=== PATIENT | male | born 1990 | race Caucasian/White ===

== ENCOUNTER 2017-03-25 18:30 | Emergency (ER) | payer OTHER ==
[2017-03-25 18:42] VITALS: BP 141/93
--- NOTE | 2017-03-25 19:16 | ER Document Report ---
ED Skin Rash/Insect Bite/Abscs - General Chief Complaint: Hand Pain Stated Complaint: THUMB SWELLING Time Seen by Provider: 03/25/17 18:57 Notes: The patient 26-year-old male, right-handed, works with computers all day, presents with 2 days of left thumb swelling and pain with a small amount of discharge. He denies any injury, numbness or tingling. TRAVEL OUTSIDE OF THE [place] IN LAST 30 DAYS: No - Related Data Allergies/Adverse Reactions: No Known Allergies Allergy (Verified 03/25/17 19:04) Past Medical History - General Information source: Patient - Social History Smoking Status: Never Smoker Frequency of alcohol use: None Drug Abuse: None Family History: Reviewed & Not Pertinent Patient has suicidal ideation: No Patient has homicidal ideation: No Renal/ Medical History: Denies: Hx Peritoneal Dialysis Surgical Hx: Negative Review of Systems - Review of Systems Notes: REVIEW OF SYSTEMS: CONSTITUTIONAL: -fevers, -chills EENT: -eye pain, -difficulty swallowing, -nasal congestion CARDIOVASCULAR:-chest pain, -syncope. RESPIRATORY: -cough, -SOB GASTROINTESTINAL: -abdominal pain, - nausea, -vomiting, -diarrhea GENITOURINARY: -dysuria, -hematuria MUSCULOSKELETAL: -back pain, -neck pain SKIN: +abscess of left thumb HEMATOLOGIC: -easy bruising or bleeding. LYMPHATIC: -swollen, enlarged glands. NEUROLOGICAL: -altered mental status or loss of consciousness, -headache, - neurologic symptoms PSYCHIATRIC: -anxiety, -depression. ALL OTHER SYSTEMS REVIEWED AND NEGATIVE. Physical Exam - Vital signs Vitals: Temp Pulse Resp BP Pulse Ox 97.8 F 74 16 141/93 H 97 03/25/17 18:38 03/25/17 18:38 03/25/17 18:38 03/25/17 18:38 03/25/17 18:38 - Notes Notes: PHYSICAL EXAMINATION: GENERAL: Well-appearing, well-nourished and in no acute distress. HEAD: Atraumatic, normocephalic. EYES: Pupils equal round and reactive to light, extraocular movements intact, sclera anicteric, conjunctiva are normal. ENT: nares patent, oropharynx clear without exudates. Moist mucous membranes. NECK: Normal range of motion, supple without lymphadenopathy LUNGS: Breath sounds clear to auscultation bilaterally and equal. No wheezes rales or rhonchi. HEART: Regular rate and rhythm without murmurs ABDOMEN: Soft, nontender, normoactive bowel sounds. No guarding, no rebound. No masses appreciated. EXTREMITIES: Abscess on left thumb. All tendons intact. No Kanavel's signs. NEUROLOGICAL: Cranial nerves grossly intact. Normal speech, normal gait. Normal sensory and motor exams. PSYCH: Normal mood, normal affect. SKIN: Left thumb 2 cm abscess with fluctuance Course - Re-evaluation Re-evalutation: Patient with left thumb abscess that was drained with purulent discharge. No evidence of flexor tenosynovitis. Patient instructed to continue warm baths begin Keflex. He will follow-up with a hand surgeon if there is worsening swelling. - Vital Signs Vital signs: Temp Pulse Resp BP Pulse Ox 97.8 F 74 18 141/93 H 97 03/25/17 18:38 03/25/17 18:38 03/25/17 18:57 03/25/17 18:38 03/25/17 18:38 Procedures - Incision and Drainage Left Thumb Time completed: 19:22 Type: Simple Blade size: 11 I&D procedure: Sterile dressing applied Incision Method: Incision made by scalpel Amount/type of drainage: 5 mL purulent drainage Discharge - Discharge Clinical Impression: Abscess of thumb, left Condition: Good Disposition: HOME, SELF-CARE Additional Instructions: ABSCESS: You have an abscess (boil). This a pus-forming infection, usually due to staph. Some boils may be left to drain on their own, but most require lancing. From the time the tender lump first appears, it may be three or four days before the abscess is ready to maru. Local heat and rest help at this stage of treatment. An antibiotic may prevent spread of the infection. Once the abscess is opened, packing may be placed into it. This is done so pus is not sealed inside by premature closure of the cavity. The packing will be removed at your follow-up visit or you may be advised to remove it yourself at home. Sometimes this packing must be replaced a few times during healing. The wound will heal with surprisingly little scar. Depending on the size and location of an abscess, healing can take one to four weeks. You may shower and wash the area around the incision site two or three times a day. Antibiotics may be prescribed, but are usually not necessary after an abscess has been drained. If you develop fever, chills, worsening pain, or increasing swelling in the area, call the doctor or return immediately. POST INCISION AND DRAINAGE: You have had an incision made to allow drainage of an abscess. The incision must remain open so that pus and debris can drain from the wound. If the abscess cavity is large, packing is placed. This keeps the tissues from collapsing and trapping pus inside, while the body shrinks the cavity. The packing may need to be replaced every day or two. The physician will instruct you on the packing. Keep a bulky dressing over the area. Replace it if it becomes saturated with blood or pus. Do not disturb the packing (if present). You may shower and cleanse the area with gentle soap and warm water two or three times a day. Local warmth may be soothing, and may promote faster healing. Return if you develop high fever or chills, or if you note spreading redness, increasing swelling, or increasing tenderness. CEPHALEXIN: The antibiotic you've been prescribed is a member of the cephalosporin class. This type of antibiotic covers a wide variety of infections, including those of the skin, lungs, and urinary tract. It's useful for staph infections. This antibiotic is slightly similar to the penicillin family. In rare cases , a person who is allergic to penicillin will also be allergic to this medication. If you have had a severe allergic reaction to penicillin, and have not taken this antibiotic since that time, notify your doctor. Antibiotics which cover many germs ("broad spectrum" antibiotics) are more likely to cause diarrhea or "yeast" infections. Women prone to vaginal yeast problems may suffer an attack after taking this antibiotic. In infants, oral thrush (white spots "stuck" on the cheek) or yeast diaper rash may result. See your doctor if these problems occur. Call at once if you develop itching, hives , shortness of breath, or lightheadedness. FOLLOW-UP CARE: Most simple abscesses will not require a follow up visit. If you had packing placed in the abscess, remove it as instructed by the physician. If you have been referred to a physician for follow-up care, call the physicians office for an appointment as you were instructed or within the next two days. If you experience worsening or a significant change in your symptoms, return to the Emergency Department at any time for re-evaluation. Prescriptions: Cephalexin Monohydrate [Keflex 500 mg Capsule] 500 mg PO TID #20 capsule Referrals: ARISTIDES PÉREZ DO [ACTIVE STAFF] - Follow up as needed
== END 2017-03-25 19:20 | disposition home or self-care (01) ==
LOC: ER 18:30
DX: L02.512 Cutaneous abscess of left hand (principal); M79.642 Pain in left hand
CPT/HCPCS: 99283

== ENCOUNTER 2017-04-05 18:48 | Emergency (ER) | payer OTHER ==
[2017-04-05] MEDS ORDERED: CEFTRIAXONE INJ 1000 MG VIAL IM ONE (19:54)
[2017-04-05] MEDS ORDERED: LIDOCAINE 1% INJ-PF (10 MG/ML) 30 ML SDV INJ ONE (19:54)
[2017-04-05] MEDS ORDERED: CLINDAMYCIN HCL 150 MG CAPSULE PO ONE (19:55)
--- NOTE | 2017-04-05 20:01 | ER Document Report ---
HPI - HPI Pain Level: 5 Notes: Patient is a 26-year-old male who presents to the ED complaining of left thumb pain, redness, and swelling since his incision and drainage 10 days ago. Patient states he was placed on Keflex, but he has since completed the prescription and his symptoms have been getting a little bit worse. Patient states that he punctured it with a needle originally got some pustular material out. Patient did set up an appointment with Dr. Pérez and is scheduled for an appointment tomorrow at 330. Patient states that he would have just waited if he had more antibiotic for his appointment tomorrow, but wanted to get a little more antibiotics until his consult tomorrow. Patient does not wish for another incision and drainage at this time as he states that Dr. Pérez may want to do it again and he does not want to have to get cut twice. Patient states he still able to move his thumb around without any problems. He still eating and drinking without any problems. He has not noticed any fever, URI, sore throat, chest pain, palpitations, syncope, cough, wheeze, shortness of breath, abdominal pain, nausea/vomiting/diarrhea, dysuria, or other joint pains. No known drug allergies. He does not take any medicines daily. No other significant medical history. Patient does not smoke or do illicit drug use. Patient denies having any cats at home or this starting from an animal bite. - ROS Notes: REVIEW OF SYSTEMS: CONSTITUTIONAL : Denies fever, chills, or sweats. Denies recent illness. EENT: Denies eye, ear, throat, or mouth pain or symptoms. Denies nasal or sinus congestion or discharge. Denies throat, tongue, or mouth swelling or difficulty swallowing. CARDIOVASCULAR: Denies chest pain. Denies palpitations or racing or irregular heart beat. Denies ankle edema. RESPIRATORY: Denies cough, cold, or chest congestion. Denies shortness of breath, difficulty breathing, or wheezing. GASTROINTESTINAL: Denies abdominal pain or distention. Denies nausea, vomiting , or diarrhea. Denies blood in vomitus, stools, or per rectum. Denies black, tarry stools. Denies constipation. GENITOURINARY: Denies difficulty urinating, painful urination, burning, frequency, blood in urine, or discharge. MUSCULOSKELETAL: see hpi SKIN: see hpi NEUROLOGICAL: denies numbness/tingling ALL OTHER SYSTEMS REVIEWED AND NEGATIVE. Dictation was performed using [employer] voice recognition software - DERM Skin Color: Normal Past Medical History - Social History Smoking Status: Never Smoker Family History: Reviewed & Not Pertinent Patient has suicidal ideation: No Patient has homicidal ideation: No Renal/ Medical History: Denies: Hx Peritoneal Dialysis Vertical Provider Document - CONSTITUTIONAL Agree With Documented VS: Yes Notes: PHYSICAL EXAMINATION: GENERAL: Well-appearing, well-nourished and in no acute distress. NECK: Normal range of motion, supple without lymphadenopathy LUNGS: Breath sounds clear to auscultation bilaterally and equal. No wheezes rales or rhonchi. HEART: Regular rate and rhythm without murmurs, rubs, gallops. Musculoskeletal: Left thumb: LROM to passive/active due to swelling, otherwise he has no issues moving/flexing it. Strength 5+/5. N/V intact distal. Extremities: No cyanosis, clubbing, or edema b/l. Peripheral pulses 2+. Capillary refill less than 3 seconds. NEUROLOGICAL: Normal sensory, motor exams PSYCH: Normal mood, normal affect. SKIN: + mild erythema, inflammation, swelling to the proximal left anterior thumb b/w mcp and ip joint. + abscess, minimal surrounding erythema. No joint tenderness. No discharge or streaks. - INFECTION CONTROL TRAVEL OUTSIDE OF THE [place] IN LAST 30 DAYS: No - RESPIRATORY O2 Sat by Pulse Oximetry: 99 Course - Re-evaluation Re-evalutation: 04/05/17 20:11 Patient is an afebrile, well-hydrated 26-year-old male who presents the ED with a left thumb infection, mild abscess/cellulitis s/p I&D 10 days ago. No wound culture was obtained at that time. Vitals are stable. PE otherwise unremarkable for any focal neurological deficits, or systemic infection. Low suspicion for any sepsis, septic joint, tenosynovitis based on exam today. No lymphangitis. Offered patient incision and drainage today, patient declined stating that he wants Dr. Pérez to do what he has to do tomorrow. Risks and benefits were understood about worsening infection without the incision and drainage today. In lieu of the incision and drainage, Rocephin 1 g given IM today along with 300 mg clindamycin p.o. I will send him home with a short prescription of clindamycin to continue taking until he sees Dr. Pérez. He may then take instruction as per the hand surgeon. Keep her consult with surgeon tomorrow in the afternoon. Recheck with your PCM within the next week. Return to the ED with any worsening/concerning symptoms otherwise. Patient is in agreement. - Vital Signs Vital signs: Temp Pulse Resp BP Pulse Ox 97.4 F 71 20 134/77 H 99 04/05/17 18:53 04/05/17 18:53 04/05/17 18:53 04/05/17 18:53 04/05/17 18:53 Discharge - Discharge Clinical Impression: Cellulitis of left thumb Condition: Stable Disposition: HOME, SELF-CARE Additional Instructions: Keep consult tomorrow with Dr. Pérez Wash with soap and water May apply bacitracin to the thumb Tylenol/ibuprofen as needed Fill script for clindamycin and take one in the morning- other direction per Dr. Pérez. Recheck with PCM this week Return to the ED with any worsening symptoms and/or development of fever, headache, chest pain, palpitations, syncope, shortness of breath, trouble breathing, abdominal pain, n/v/d, muscle weakness/paralysis, worsening abscess, purulent discharge, red streaks, numbness/tingling, or other worsening symptoms that are concerning to you. Prescriptions: Clindamycin HCl [Cleocin 300 mg Capsule] 300 mg PO BID #6 capsule Forms: Elevated Blood Pressure Referrals: ARISTIDES PÉREZ DO [ACTIVE STAFF] - Follow up as needed
[2017-04-05 20:44] VITALS: BP 136/83
== END 2017-04-05 20:52 | disposition home or self-care (01) ==
LOC: ER 18:48
DX: L03.012 Cellulitis of left finger (principal); L02.512 Cutaneous abscess of left hand; Z98.890 Other specified postprocedural states
CPT/HCPCS: 99283; 96372; J3490; J0696

== ENCOUNTER 2017-04-07 12:31 | Day surgery (SDC) | payer OTHER ==
[~2017-04-07 12:31] MED LIST: CEFAZOLIN 2 GM/D5W RTU 2 GM/50 ML RTUPB IV PRN; GLYCOPYRROLATE INJ 0.4 MG/2 ML VIAL ONE; METOCLOPRAMIDE HCL INJ/PF 10 MG/2 ML SDV ONE; ONDANSETRON HCL INJ/PF 4 MG/2 ML SDV ONE
[2017-04-07] MEDS ORDERED: BUPIVACAINE HCL 0.5 % INJ/PF 30 ML SDV ONE (12:54)
[2017-04-07] MEDS ORDERED: MIDAZOLAM 2 MG/2 ML INJ ONE ×2 (13:41→16:44)
[2017-04-07] MEDS ORDERED: PROPOFOL INJ 200 MG/20 ML VIAL IV ONE (16:44)
[2017-04-07] MEDS ORDERED: FENTANYL CITRATE INJ/PF 100 MCG/2 ML AMPUL ONE (16:44)
[2017-04-07] MEDS ORDERED: BUPIVACAINE HCL 0.5 % INJ/PF 30 ML SDV INJ ONE (17:12)
--- NOTE | 2017-04-07 17:33 | Operative Report ---
Operative Report PREOPERATIVE DIAGNOSIS: Left Thumb Mass POSTOPERATIVE DIAGNOSIS: Same OPERATION: Excision Mass Left Thumb SURGEON: ARISTIDES PÉREZ ANESTHESIA: LMAC TISSUE REMOVED OR ALTERED: Mass thumb. Cultures x 2 COMPLICATIONS: None ESTIMATED BLOOD LOSS: <10cc PROCEDURE: Indication for above procedure: 26-year-old male who presented to my office with a thumb mass and redness. Patient was seen in the emergency room where attempted aspiration was performed and is continued to have increasing pain. The mass was present for over a year but only just recently began causing him discomfort. At that point we discussed treatment options including observation versus operative intervention. Risks and benefits were explained patient verbalized understanding consented for the procedure. Procedure In Detail: Patient was seen and evaluated in the preoperative holding area. The LEFT upper extremity was initialized and marked. Patient received 2g of Ancef IV for bacterial prophylaxis. Patient was taken back to the operative room where transferred to the operative table. Once they were adequately anesthetized a nonsterile tourniquet was placed on the upper extremity. A surgical team debriefing was performed ensuring all instrumentation was available, the surgical procedure was discussed with possible concerns reviewed. A digital block was performed utilizing 10 mL 50:50 mixture of 0.5% Marcaine and 1% lidocaine without epinephrine. The upper extremity was prepped with chlorhexidine and alcohol and draped in a sterile fashion. A timeout was done identifying correct patient, procedure and extremity everyone in attendance agree with this and verbalized no concerns. The extremity was exsanguinated the tourniquet was inflated to 250 mmHg. One arm of a Yaritza skin incision was made obliquely across the mass which was located radially. Blunt dissection was performed the mass was adhered to the surrounding neurovascular bundle. I carefully identified the neurovascular bundle proximal and distally and freed the neurovascular bundle from the adjacent mass. There was nonviable appearing tissue but no gross purulence was appreciated. Cultures 2 were obtained. I was then able to isolate the mass and remove it in its entirety. 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 The wound was then copiously irrigated with normal saline. No tracking erythema was appreciated. The skin was then closed with interrupted 3-0 nylon suture. Wound was dressed with Xeroform 4 x 4's and a soft dressing. Sponge counts, instrument counts, needle counts counts were correct. Patient was then awoken from anesthesia. Transferred from the operating room table to the operating room stretcher. There was no intraoperative complications patient tolerated procedure well stable to PACU. Postoperative plan: Patient will be started on clindamycin p.o. given his erythema. There is no gross abscess thus I do not feel he requires IV antibiotics. Will adjust cultures depending on patient results.
--- NOTE | 2017-04-07 17:36 | PDOC DISCHARGE SUMMARY ---
Discharge Summary (SDC) - Discharge Final Diagnosis: Left thumb mass Date of Surgery: 04/07/17 Discharge Date: 04/07/17 Condition: Good Treatment or Instructions: Schedule Follow Up w/ Dr. Eduardo Perez @ [facility] to be seen in 10-14 days or as scheduled [place]: [place]: [place]: May remove dressing on postop day #3, keep incision covered and dry. Ice and elevate May begin finger range of motion attempting to make full fist. Stool softener of choice when on pain medication. Prescriptions: Clindamycin HCl 300 mg PO TID #30 capsule Hydrocodone/Acetaminophen [[place] 5-325 mg Tablet] 1 tab PO Q6 PRN #20 tablet PRN Reason: Discharge Diet: As Tolerated Respiratory Treatments at Home: Deep Breathing/Coughing Discharge Activity: Activity As Tolerated Report the Following to Your Physician Immediately: Fever over 101 Degrees, Unusual Bleeding, Redness, Swelling, Warmth, Increased Soreness
[2017-04-07] MEDS ORDERED: ONDANSETRON HCL INJ/PF 4 MG/2 ML SDV IV PRN (17:37)
[2017-04-07] MEDS ORDERED: HYDROCODONE/ACETAMINOPHEN 5-325 MG TABLET PO PRN (17:37)
[2017-04-07] MEDS ORDERED: MORPHINE SULFATE 10 MG/ML INJ IV PRN (17:37)
[2017-04-07 19:35] VITALS: BP 140/90
== END 2017-04-07 19:15 | disposition home or self-care (01) ==
LOC: OROUT 12:31
PROVIDERS: ATTEND Orthopaedic Surgery
PROC: 0LB80ZZ Excision of Left Hand Tendon, Open Approach (ICD-10-PCS; principal; 2017-04-07 15:15)
DX: L72.0 Epidermal cyst (principal); B95.4 Other streptococcus as the cause of diseases classified elsewhere
CPT/HCPCS: 87070; 87205; 87075; 87077; 88304 ×2; 26160; J2250; J3010; J2765; J2405; J2704; J0690; 1810